=== PATIENT | male | born 2000 | race Caucasian/White ===

== ENCOUNTER 2021-03-07 07:45 | Outpatient (CLI) | payer OTHER ==
[2021-03-07] MEDS ORDERED: TRIAMCINOLONE ACETONIDE 40 MG/ML, 1ML ONE (08:05)
[2021-03-07] MEDS ORDERED: BUPIVACAINE/PF 0.5% ONE (08:05)
[2021-03-07] MEDS ORDERED: LIDOCAINE 1%, 20ML ONE ×2 (08:06→08:07)
[2021-03-07] MEDS ORDERED: OMNIPAQUE 300 MG/ML, 10ML VIAL ONE (08:30)
[2021-03-07] MEDS ORDERED: GADOTERATE 7.5 MMOL/15 ML VIAL ONE (08:30)
[2021-03-07] MEDS ORDERED: ROPivacaine/PF 0.2%, 10 ML ONE (08:48)
== END 2021-03-07 23:59 | disposition home or self-care (01) ==
LOC: RAD 07:45
PROVIDERS: ATTEND Orthopaedic Surgery
DX: M25.851 Other specified joint disorders, right hip (principal); S73.191A Other sprain of right hip, initial encounter; X58.XXXA Exposure to other specified factors, initial encounter; Y93.89 Activity, other specified; Y92.89 Other specified places as the place of occurrence of the external cause; Y99.8 Other external cause status
CPT/HCPCS: 27093; 73525; 73722; A9575; J2795; J3301; J3490; Q9967